=== PATIENT | female | born 1965 | race African-American/Black ===

== ENCOUNTER 2017-01-24 12:23 | Inpatient (IN) | payer OTHER ==
[2017-01-24 13:34] VITALS: BMI 18.0
[2017-01-24] MEDS ORDERED: IBUPROFEN 400 MG TABLET (FP) PO PRN (14:30)
[2017-01-24] MEDS ORDERED: ACETAMINOPHEN 325 MG TABLET (FP) PO PRN (14:30)
[2017-01-24] MEDS ORDERED: NICOTINE POLACRILEX 4 MG GUM BUC PRN (14:30)
[2017-01-24] MEDS ORDERED: MAG HYDROX/AL HYDROX/SIMETH 30 ML UNIT-DOSE CUP PO PRN (14:30)
[2017-01-24] MEDS ORDERED: LOPERAMIDE HCL 2 MG CAPSULE PO PRN (14:30)
[2017-01-24] MEDS ORDERED: guaiFENesin/D-METHORPHAN HB 10 ML UNIT-DOSE CUPS PO PRN (14:30)
[2017-01-24] MEDS ORDERED: MENTHOL/PHENOL 1 EACH UD MM PRN (14:30)
[2017-01-24] MEDS ORDERED: MAGNESIUM HYDROX 2400MG/30ML ORAL SUSPENSION 30 ML CUP PO PRN (14:30)
[2017-01-24] MEDS ORDERED: diphenhydrAMINE HCL 50 MG CAPSULE PO PRN (14:30)
[2017-01-24] MEDS ORDERED: chlordiazePOXIDE HCL 25 MG CAPSULE PO PRN ×2 (14:30→14:57)
[2017-01-24] MEDS ORDERED: chlordiazePOXIDE HCL 25 MG CAPSULE PO ONE ×2 (14:30→15:09)
[2017-01-24] MEDS ORDERED: MAGNESIUM CITRATE 300 ML BOTTLE PO PRN (14:30)
[2017-01-24] MEDS ORDERED: hydrOXYzine PAMOATE 50 MG CAPSULE (FP) PO PRN (14:30)
[2017-01-24] MEDS ORDERED: P-EPHED 60MG/TRIPROLIDI 2.5MG TABLET PO PRN (14:30)
--- NOTE | 2017-01-24 14:30 | HP ---
CIWA Score - CIWA Score Nausea/Vomitin-No Nausea/No Vomiting Muscle Tremors: 4-Moderate,w/Arms Extend Anxiety: 4-Mod. Anxious/Guarded Agitation: 4-Moderately Restless Paroxysmal Sweats: 3 Orientation: 0-Oriented Tacttile Disturbances: 0-None Auditory Disturbances: 0-None Visual Disturbances: 0-None Headache: 0-None Present CIWA-Ar Total Score: 15 Admission ROS [facility] - HPI Chief Complaint: I NEED TO STOP DRINKING. Allergies/Adverse Reactions: Allergies Allergy/AdvReac Type Severity Reaction Status Date / Time penicillin G Allergy Severe Swelling Verified 01/24/17 14:08 History of Present Illness: pt is 51yr female with a history of alcohol dependence seeking detox for treatment. Exam Limitations: No Limitations - Ebola screening Have you traveled outside of the country in the last 21 days: No Have you had contact with anyone from an Ebola affected area: No Have you been sick,other than usual withdrawal symptoms: No Do you have a fever: No - Review of Systems Constitutional: Diaphoresis, Loss of Appetite, Night Sweats, Changes in sleep EENT: reports: Blurred Vision, Nose Congestion Respiratory: reports: No Symptoms reported Cardiac: reports: No Symptoms Reported GI: reports: Poor Appetite, Poor Fluid Intake : reports: No Symptoms Reported Musculoskeletal: reports: No Symptoms Reported Integumentary: reports: Flushing, Sweating Neuro: reports: Tingling, Tremors Endocrine: reports: Excessive Sweating, Flushing, Intolerance to Cold, Intolerance to Heat Hematology: reports: No Symptoms Reported Psychiatric: reports: Judgement Intact, Mood/Affect Appropiate, Orientated x3, Agitated, Anxious Other Systems: Reviewed and Negative Patient History - Patient Medical History Hx Anemia: No Hx Asthma: No Hx Chronic Obstructive Pulmonary Disease (COPD): No Hx Cancer: No Hx Cardiac Disorders: No Hx Congestive Heart Failure: No Hx Hypertension: No Hx Hypercholesterolemia: No Hx Pacemaker: No HX Cerebrovascular Accident: No Hx Seizures: No Hx Dementia: No Hx Diabetes: No Hx Gastrointestinal Disorders: No Hx Liver Disease: No Hx Genitourinary Disorders: No Hx Sexually Transmitted Disorders: No Hx Renal Disease (ESRD): No Hx Thyroid Disease: No Hx Human Immunodeficiency Virus (HIV): Yes (on truvada but did not bring tivicay. diagnosed 2007) Hx Hepatitis C: Yes Hx Depression: Yes Hx Suicide Attempt: No (denies) Hx Bipolar Disorder: Yes Hx Schizophrenia: Yes - Patient Surgical History Past Surgical History: No - PPD History Previous Implant?: Yes Documented Results: Negative w/o proof PPD to be Administered?: Yes - Reproductive History Patient is a Female of Child Bearing Age (11 -55 yrs old): No Patient : Yes - Smoking Cessation Smoking history: Current every day smoker Have you smoked in the past 12 months: Yes Aproximately how many cigarettes per day: 10 Hx Chewing Tobacco Use: No Initiated information on smoking cessation: Yes 'Breaking Loose' booklet given: 01/24/17 - Substance & Tx. History Hx Alcohol Use: Yes Hx Substance Use: Yes Substance Use Type: Alcohol, Cocaine Hx Substance Use Treatment: Yes - Substances Abused Crack Route: Smoking Frequency: Daily Amount used: $150 Age of first use: 26 Date of Last Use: 01/24/17 Alcohol-beer Route: Oral Frequency: Daily Amount used: 3 (24 oz.) Age of first use: 23 Date of Last Use: 01/24/17 Family Disease History - Family Disease History Family Disease History: CA: Mother () Admission Physical Exam S - Vital Signs Vital Signs: Vital Signs - 24 hr 01/24/17 13:32 Temperature 97.6 F Pulse Rate 86 Respiratory 18 Rate Blood Pressure 100/72 - Physical General Appearance: Yes: Appropriately Dressed, Moderate Distress, Thin, Tremorous, Irritable, Sweating, Anxious HEENTM: Yes: Normal Voice, Nasal Congestion, Other (missing teeth) Respiratory: Yes: Lungs Clear, Normal Breath Sounds, No Respiratory Distress Neck: Yes: No masses,lesions,Nodules Breast: Yes: Within Normal Limits Cardiology: Yes: Regular Rhythm, Regular Rate, S1, S2 Abdominal: Yes: Normal Bowel Sounds Genitourinary: Yes: Within Normal Limits Back: Yes: Normal Inspection Musculoskeletal: Yes: full range of Motion Extremities: Yes: Normal Capillary Refill, Normal Inspection, Tremors Neurological: Yes: Fully Oriented, Alert, Normal Response Integumentary: Yes: Dry, Diaphoresis Lymphatic: Yes: Within Normal Limits - Diagnostic (1) Alcohol dependence with uncomplicated withdrawal Current Visit: Yes Status: Chronic (2) Cocaine dependence, uncomplicated Current Visit: Yes Status: Chronic (3) HIV disease Current Visit: Yes Status: Chronic (4) Nicotine dependence Current Visit: Yes Status: Chronic Qualifiers: Nicotine product type: cigarettes Substance use status: uncomplicated Qualified Code(s): F17.210 - Nicotine dependence, cigarettes, uncomplicated Cleared for Admission [facility] - Detox or Rehab [facility] Level of Care: Medically Managed Detox Regimen/Protocol: Librium [facility] Breath Alcohol Content Breath Alcohol Content: 0 Urine Pregancy Test - Result Urine Test Results: Negative- NO Line Present Urine Drug Screen - Results Urine Drug Screen Results: QUINTON-Cocaine
[2017-01-24] MEDS ORDERED: ALBUTEROL SO4 6.7 GM HFA INHALER IH PRN (14:51)
--- NOTE | 2017-01-24 15:57 | CONSULT ---
[facility] Psychiatric Consult - Data Date of interview: 01/24/17 Admission source: [facility] Identifying data: This is 89 years old female with history of Schizophrenia intoxicated with: Alcohol Crack and Nicotine Substance Abuse History: - Smoking Cessation. Smoking history: Current every day smoker. Have you smoked in the past 12 months: Yes. Aproximately how many cigarettes per day: 10. Hx Chewing Tobacco Use: No. Initiated information on smoking cessation: Yes. 'Breaking Loose' booklet given: 01/24/17. - Substance & Tx. History. Hx Alcohol Use: Yes. Hx Substance Use: Yes. Substance Use Type : Alcohol, Cocaine. Hx Substance Use Treatment: Yes. - Substances Abused. Crack. Route: Smoking. Frequency: Daily. Amount used: $150. Age of first use : 26. Date of Last Use: 01/24/17. Alcohol-beer. Route: Oral. Frequency: Daily. Amount used: 3 (24 oz.). Age of first use: 23. Date of Last Use: 01/24 Medical History: HIV Psychiatric History: Patient reportsm to carry Paranoid Schizophrenia with no history of psychiatric hospitalizations, intoxicated with: Alcohol, [place]zak and Nicotine. Patient reportsd taking prior mto admission: Reiperdal 1mg po bid. Cogentyin 0.5mg po bid. Trazodone 50mg po qhs Physical/Sexual Abuse/Trauma History: Denies Additional Comment: Reiperdal 1mg po bid. Cogentyin 0.5mg po bid. Trazodone 50mg po qhs Mental Status Exam - Mental Status Exam Alert and Oriented to: Place Cognitive Function: Fair Patient Appearance: Unkempt Mood: Anxious Affect: Labile Patient Behavior: Talkative Speech Pattern: Appropriate Voice Loudness: Mildly Loud Thought Process: Goal Oriented Thought Disorder: Being Controlled Hallucinations: Denies Suicidal Ideation: Denies Homicidal Ideation: Denies Insight/Judgement: Fair Sleep: Difficulty falling asleep Appetite: Weight loss Muscle strength/Tone: Normal Gait/Station: Normal Additional Comments: Reiperdal 1mg po bid. Cogentyin 0.5mg po bid. Trazodone 50mg po qhs Psychiatric Findings - Problem List ([place] 1, 2,3) (1) Alcohol dependence with uncomplicated withdrawal Current Visit: Yes Status: Chronic (2) Cocaine dependence, uncomplicated Current Visit: Yes Status: Chronic (3) Nicotine dependence Current Visit: Yes Status: Chronic Qualifiers: Nicotine product type: cigarettes Substance use status: uncomplicated Qualified Code(s): F17.210 - Nicotine dependence, cigarettes, uncomplicated (4) Paranoid schizophrenia Current Visit: Yes Status: Acute - Initial Treatment Plan Initial Treatment Plan: Reiperdal 1mg po bid. Cogentyin 0.5mg po bid. Trazodone 50mg po qhs
[2017-01-24] MEDS ORDERED: chlordiazePOXIDE HCL 25 MG CAPSULE PO SCH (17:00)
[2017-01-24] MEDS: chlordiazePOXIDE HCL 25 MG CAPSULE PO SCH ×2 (17:42→22:46)
[2017-01-24 20:15] LABS: URINE APPEARANCE SLCLOUDY; URINE BILIRUBIN NEGATIVE (NEGATIVE); URINE BLOOD NEGATIVE (NEGATIVE); URINE COLOR YELLOW; URINE GLUCOSE (UA) NEGATIVE (NEGATIVE); URINE KETONE NEGATIVE (NEGATIVE); URINE LEUK ESTERASE NEGATIVE (NEGATIVE); URINE NITRITE NEGATIVE (NEGATIVE); URINE PROTEIN NEGATIVE (NEGATIVE); URINE UROBILINOGEN 4.0 E.U/dl E.U./dl (0.2-1.0)
[2017-01-24] MEDS ORDERED: [UNRECOGNIZED DRUG - OTHER] PO SCH (22:00)
[2017-01-24] MEDS ORDERED: CALCIUM CARBONATE PO SCH (22:00)
[2017-01-24] MEDS ORDERED: VITAMIN D3 PO SCH (22:00)
[2017-01-24] MEDS: THIAMINE HCL 100 MG TABLET (FP) PO SCH (22:46)
[2017-01-24] MEDS: risperiDONE 1 MG TABLET (FP) PO SCH (22:46)
[2017-01-24] MEDS: traZODone HCL 50 MG TABLET (FP) PO SCH (22:46)
[2017-01-24] MEDS: BENZTROPINE MESYLATE 1 MG TABLET (FP) PO SCH (22:46)
[2017-01-25] MEDS: chlordiazePOXIDE HCL 25 MG CAPSULE PO SCH ×2 (05:26→10:58)
[2017-01-25 10:14] LABS: MEAN CELL VOLUME 80.5 fl (80-96); MEAN PLT VOLUME 10.3 fl (7.5-11.1); PLATELET COUNT 123 K/MM3 (134-434); RDW 16.4 % (11.6-15.6); WHITE BLOOD COUNT 2.5 K/mm3 (4.0-10.0)
[2017-01-25 10:56] LABS: ALBUMIN 3.2 g/dl (3.4-5.0); BILIRUBIN,TOTAL 0.4 mg/dL (0.2-1.0); CALCIUM 8.9 mg/dL (8.5-10.1); TOT PROT 7.6 g/dl (6.4-8.2)
[2017-01-25] MEDS: PRENATAL VITAMINS W/ FOLIC ACID TABLET (FP) PO SCH (10:57)
[2017-01-25] MEDS: risperiDONE 1 MG TABLET (FP) PO SCH ×2 (10:58→22:38)
[2017-01-25] MEDS: BENZTROPINE MESYLATE 1 MG TABLET (FP) PO SCH ×2 (10:58→22:37)
[2017-01-25] MEDS: CALCIUM 500MG/VIT-D 200 UNITS COMBO TABLET (FP) PO SCH (10:58)
[2017-01-25] MEDS: NICOTINE 21 MG/24 HOURS TOPICAL PATCH TD SCH (11:00)
--- NOTE | 2017-01-25 11:55 | PN ---
[facility] CIWA - CIWA Score Nausea/Vomitin Muscle Tremors: 2 Anxiety: 2 Agitation: 2 Paroxysmal Sweats: 3 Orientation: 0-Oriented Tacttile Disturbances: 1-Very Mild Itch/Numbness Auditory Disturbances: 0-None Visual Disturbances: 0-None Headache: 0-None Present CIWA-Ar Total Score: 12 S Progress Note (SOAP) Subjective: interrrupted sleep, sweats , diarrhea Objective: 01/25/17 11:58 01/25/17 11:58 Vital Signs Temperature 97.7 F 01/25/17 11:30 Pulse Rate 80 01/25/17 11:30 Respiratory Rate 18 01/25/17 11:30 Blood Pressure 87/52 01/25/17 11:30 O2 Sat by Pulse Oximetry (%) Laboratory Tests 01/24/17 01/25/17 01/25/17 19:00 07:00 07:00 WBC 2.5 L RBC 4.57 Hgb 11.4 Hct 36.8 MCV 80.5 MCHC 31.0 L RDW 16.4 H Plt Count 123 L MPV 10.3 Sodium 142 Potassium 3.8 Chloride 106 Carbon Dioxide 31 Anion Gap 5 L BUN 14 Creatinine 1.0 Creat Clearance w eGFR 58.00 Random Glucose 71 L Calcium 8.9 Total Bilirubin 0.4 AST 70 H ALT 86 H Alkaline Phosphatase 100 Total Protein 7.6 Albumin 3.2 L Urine Color Yellow Urine Appearance Slcloudy Urine pH 5.0 Ur Specific [place] 1.024 Urine Protein Negative Urine Glucose (UA) Negative Urine Ketones Negative Urine Blood Negative Urine Nitrite Negative Urine Bilirubin Negative Urine Urobilinogen 4.0 e.u/dl H Ur Leukocyte Esterase Negative pt aox3 in nad ambulating 01/25/17 12:01 Assessment: 01/25/17 11:59 withdrawal sx's htn Plan: cont. detox increase fluids imodium prn clonidine 0.1mg now increase enalapril to 10mg /d
--- NOTE | 2017-01-25 16:55 | EKG ---
Test Reason : Blood Pressure : / mmHG Vent. Rate : 068 BPM Atrial Rate : 068 BPM P-R Int : 142 ms QRS Dur : 082 ms QT Int : 404 ms P-R-T Axes : 000 106 110 degrees QTc Int : 429 ms NORMAL SINUS RHYTHM RIGHTWARD AXIS BORDERLINE ECG NO PREVIOUS ECGS AVAILABLE Confirmed by GEMMA GRANADOS MD ([id number]) on 01/25/2017 4:55:14 PM Referred By: Confirmed By:GEMMA GRANADOS MD
[2017-01-25] MEDS: chlordiazePOXIDE HCL 10 MG CAPSULE PO SCH ×2 (16:56→22:37)
[2017-01-25] MEDS ORDERED: chlordiazePOXIDE HCL 25 MG CAPSULE PO SCH (17:00)
[2017-01-25] MEDS: traZODone HCL 50 MG TABLET (FP) PO SCH (22:38)
[2017-01-25] MEDS: THIAMINE HCL 100 MG TABLET (FP) PO SCH (22:38)
[2017-01-26] MEDS: chlordiazePOXIDE HCL 10 MG CAPSULE PO SCH ×2 (07:00→10:26)
[2017-01-26] MEDS: CALCIUM 500MG/VIT-D 200 UNITS COMBO TABLET (FP) PO SCH (10:24)
[2017-01-26] MEDS: NICOTINE 21 MG/24 HOURS TOPICAL PATCH TD SCH (10:24)
[2017-01-26] MEDS: risperiDONE 1 MG TABLET (FP) PO SCH ×2 (10:24→22:27)
[2017-01-26] MEDS: PRENATAL VITAMINS W/ FOLIC ACID TABLET (FP) PO SCH (10:24)
[2017-01-26] MEDS: BENZTROPINE MESYLATE 1 MG TABLET (FP) PO SCH ×2 (10:24→22:27)
--- NOTE | 2017-01-26 10:33 | PN ---
[facility] CIWA - CIWA Score Nausea/Vomitin-No Nausea/No Vomiting Muscle Tremors: 3 Anxiety: 3 Agitation: 2 Paroxysmal Sweats: 2 Orientation: 0-Oriented Tacttile Disturbances: 0-None Auditory Disturbances: 0-None Visual Disturbances: 0-None Headache: 0-None Present CIWA-Ar Total Score: 10 S Progress Note (SOAP) Subjective: sweats agitation feeling much better Objective: 01/26/17 10:32 Vital Signs Temperature 97.1 F L 01/26/17 10:00 Pulse Rate 115 H 01/26/17 10:00 Respiratory Rate 20 01/26/17 10:00 Blood Pressure 108/63 01/26/17 10:00 O2 Sat by Pulse Oximetry (%) Laboratory Tests 01/24/17 01/25/17 01/25/17 19:00 07:00 07:00 WBC 2.5 L RBC 4.57 Hgb 11.4 Hct 36.8 MCV 80.5 MCHC 31.0 L RDW 16.4 H Plt Count 123 L MPV 10.3 Sodium 142 Potassium 3.8 Chloride 106 Carbon Dioxide 31 Anion Gap 5 L BUN 14 Creatinine 1.0 Creat Clearance w eGFR 58.00 Random Glucose 71 L Calcium 8.9 Total Bilirubin 0.4 AST 70 H ALT 86 H Alkaline Phosphatase 100 Total Protein 7.6 Albumin 3.2 L Urine Color Yellow Urine Appearance Slcloudy Urine pH 5.0 Ur Specific [place] 1.024 Urine Protein Negative Urine Glucose (UA) Negative Urine Ketones Negative Urine Blood Negative Urine Nitrite Negative Urine Bilirubin Negative Urine Urobilinogen 4.0 e.u/dl H Ur Leukocyte Esterase Negative RPR Titer 01/25/17 07:00 WBC RBC Hgb Hct MCV MCHC RDW Plt Count MPV Sodium Potassium Chloride Carbon Dioxide Anion Gap BUN Creatinine Creat Clearance w eGFR Random Glucose Calcium Total Bilirubin AST ALT Alkaline Phosphatase Total Protein Albumin Urine Color Urine Appearance Urine pH Ur Specific [place] Urine Protein Urine Glucose (UA) Urine Ketones Urine Blood Urine Nitrite Urine Bilirubin Urine Urobilinogen Ur Leukocyte Esterase RPR Titer Nonreactive awake/alert ambulating no acute distress Assessment: 01/26/17 10:32 withdrawal sx Plan: continue detox increase fluids
[2017-01-26] MEDS ORDERED: chlordiazePOXIDE 5 MG CAPSULE PO SCH (17:00)
[2017-01-26] MEDS: chlordiazePOXIDE 5 MG CAPSULE PO SCH ×2 (17:44→22:27)
[2017-01-26] MEDS: traZODone HCL 50 MG TABLET (FP) PO SCH (22:27)
[2017-01-26] MEDS: THIAMINE HCL 100 MG TABLET (FP) PO SCH (22:41)
[2017-01-27] MEDS: chlordiazePOXIDE 5 MG CAPSULE PO SCH ×2 (05:44→10:53)
[2017-01-27] MEDS: BENZTROPINE MESYLATE 1 MG TABLET (FP) PO SCH ×2 (10:51→22:40)
[2017-01-27] MEDS: CALCIUM 500MG/VIT-D 200 UNITS COMBO TABLET (FP) PO SCH (10:51)
[2017-01-27] MEDS: PRENATAL VITAMINS W/ FOLIC ACID TABLET (FP) PO SCH (10:51)
[2017-01-27] MEDS: risperiDONE 1 MG TABLET (FP) PO SCH ×2 (10:51→22:40)
[2017-01-27] MEDS: NICOTINE 21 MG/24 HOURS TOPICAL PATCH TD SCH ×2 (10:53→15:06)
--- NOTE | 2017-01-27 11:57 | PN ---
[facility] Progress Note (SOAP) Subjective: feeling better but has diarrhea Objective: 01/27/17 11:56 Vital Signs Temperature 97.5 F L 01/27/17 09:45 Pulse Rate 86 01/27/17 09:45 Respiratory Rate 18 01/27/17 09:45 Blood Pressure 126/99 01/27/17 11:27 O2 Sat by Pulse Oximetry (%) Laboratory Tests 01/24/17 01/25/17 01/25/17 19:00 07:00 07:00 WBC 2.5 L RBC 4.57 Hgb 11.4 Hct 36.8 MCV 80.5 MCHC 31.0 L RDW 16.4 H Plt Count 123 L MPV 10.3 Sodium 142 Potassium 3.8 Chloride 106 Carbon Dioxide 31 Anion Gap 5 L BUN 14 Creatinine 1.0 Creat Clearance w eGFR 58.00 Random Glucose 71 L Calcium 8.9 Total Bilirubin 0.4 AST 70 H ALT 86 H Alkaline Phosphatase 100 Total Protein 7.6 Albumin 3.2 L Urine Color Yellow Urine Appearance Slcloudy Urine pH 5.0 Ur Specific [place] 1.024 Urine Protein Negative Urine Glucose (UA) Negative Urine Ketones Negative Urine Blood Negative Urine Nitrite Negative Urine Bilirubin Negative Urine Urobilinogen 4.0 e.u/dl H Ur Leukocyte Esterase Negative RPR Titer 01/25/17 07:00 WBC RBC Hgb Hct MCV MCHC RDW Plt Count MPV Sodium Potassium Chloride Carbon Dioxide Anion Gap BUN Creatinine Creat Clearance w eGFR Random Glucose Calcium Total Bilirubin AST ALT Alkaline Phosphatase Total Protein Albumin Urine Color Urine Appearance Urine pH Ur Specific [place] Urine Protein Urine Glucose (UA) Urine Ketones Urine Blood Urine Nitrite Urine Bilirubin Urine Urobilinogen Ur Leukocyte Esterase RPR Titer Nonreactive pt aox3 in nad ambulating Assessment: 01/27/17 11:56 withdrawal sx;s diarrhea Plan: cont. detox increase fluids imodium prn d/c in am
[2017-01-27] MEDS ORDERED: chlordiazePOXIDE HCL 10 MG CAPSULE PO SCH (17:00)
[2017-01-27] MEDS: chlordiazePOXIDE HCL 10 MG CAPSULE PO SCH ×2 (17:46→22:40)
[2017-01-27] MEDS: traZODone HCL 50 MG TABLET (FP) PO SCH (22:40)
[2017-01-27] MEDS: THIAMINE HCL 100 MG TABLET (FP) PO SCH (22:40)
[2017-01-28] MEDS: chlordiazePOXIDE HCL 10 MG CAPSULE PO SCH (06:02)
[2017-01-28] MEDS: CALCIUM 500MG/VIT-D 200 UNITS COMBO TABLET (FP) PO SCH (09:40)
[2017-01-28] MEDS: PRENATAL VITAMINS W/ FOLIC ACID TABLET (FP) PO SCH (09:40)
--- NOTE | 2017-01-28 09:40 | PN ---
S Progress Note (SOAP) Subjective: ALERT,NO COMPLAINT Objective: 01/28/17 09:38 Vital Signs Temperature 98.6 F 01/28/17 07:01 Pulse Rate 66 01/28/17 07:01 Respiratory Rate 16 01/28/17 07:01 Blood Pressure 100/60 01/28/17 07:01 O2 Sat by Pulse Oximetry (%) Assessment: 01/28/17 09:38 DETOX COMPLETED,NO WITHDRAWAL SYMPTOM Plan: DISCHARGE TODAY,FOLLOW UP WITH AFTER CARE [facility]
--- NOTE | 2017-01-28 09:40 | DS ---
[facility] Detox Discharge Summary Admission Date: 01/24/17 Discharge Date: 01/28/17 - History Present History: Alcohol Dependence, Cocaine Dependence Additional Comments: FOLLOW UP WITH [facility] AND PMD FOR MEDICAL PROBLEM Pertinent Past History: HIV ASTHMA NICOTINE DEPENDENCE - Physical Exam Results Vital Signs: Vital Signs Temperature 98.6 F 01/28/17 07:01 Pulse Rate 66 01/28/17 07:01 Respiratory Rate 16 01/28/17 07:01 Blood Pressure 100/60 01/28/17 07:01 O2 Sat by Pulse Oximetry (%) Pertinent Admission Physical Exam Findings: WITHDRAWAL SYMPTOM - Treatment Hospital Course: Detox Protocol Followed, Detoxed Safely, Responded well, Discharged Condition Good, Rehab Referral Accepted Patient has Accepted a Rehab Referral to: [facility] - Medication Discharge Medications: Ambulatory Orders Albuterol Sulfate Inhaler - [Ventolin Hfa Inhaler -] 2 inh PO Q4H PRN 01/24/17 Benztropine Mesylate [Cogentin -] 0.5 mg PO BID 01/24/17 Benztropine Mesylate [Cogentin -] 0.5 mg PO BID #60 tablet 01/24/17 Bisacodyl [Dulcolax -] 5 mg PO DAILY PRN 01/24/17 Calcium Carbonate/Vitamin D3 [Oyster Shell Calcium-Vit D Tab] 1 each PO BID Emtricitabine/Tenofovir [Truvada] 1 tab PO DAILY 01/24/17 Risperidone [Risperdal -] 1 mg PO BID #60 tablet 01/24/17 Risperidone [Risperdal] 1 mg PO BID 01/24/17 Trazodone HCl [Desyrel -] 50 mg PO HS #30 tablet 01/24/17 Trazodone HCl [Desyrel -] 50 mg PO HS PRN 01/24/17 - Diagnosis (1) Paranoid schizophrenia Current Visit: Yes Status: Acute (2) Alcohol dependence with uncomplicated withdrawal Current Visit: Yes Status: Chronic (3) Cocaine dependence, uncomplicated Current Visit: Yes Status: Chronic (4) HIV disease Current Visit: Yes Status: Chronic (5) Nicotine dependence Current Visit: Yes Status: Chronic Qualifiers: Nicotine product type: cigarettes Substance use status: uncomplicated Qualified Code(s): F17.210 - Nicotine dependence, cigarettes, uncomplicated (6) Asthma Current Visit: Yes Status: Acute - AMA Did Patient Leave Against Medical Advice: No
[2017-01-28] MEDS: BENZTROPINE MESYLATE 1 MG TABLET (FP) PO SCH (09:41)
[2017-01-28] MEDS: risperiDONE 1 MG TABLET (FP) PO SCH (09:41)
[2017-01-28] MEDS: NICOTINE 21 MG/24 HOURS TOPICAL PATCH TD SCH (09:41)
[2017-01-28 10:35] VITALS: BP 89/60; PULSE 88; TEMP 98.1
== END 2017-01-28 12:25 | disposition other institution (70) | DRG 774 ==
LOC: YASAS 12:23 → Y6N 15:00
PROVIDERS: ADMIT Internal Medicine Addiction Medicine; ATTEND Internal Medicine Addiction Medicine
PROC: HZ2ZZZZ Detoxification Services for Substance Abuse Treatment (ICD-10-PCS; principal; 2017-01-28)
DX: F10.230 Alcohol dependence with withdrawal, uncomplicated (principal); F14.20 Cocaine dependence, uncomplicated; F17.210 Nicotine dependence, cigarettes, uncomplicated; F20.0 Paranoid schizophrenia; B20 Human immunodeficiency virus [HIV] disease; J45.909 Unspecified asthma, uncomplicated
CPT/HCPCS: 36415; 71020-TC; 80053; 81003; 85027; 86593; 93005; 93010; J2794

== ENCOUNTER 2017-01-28 12:46 | Inpatient (IN) | payer OTHER ==
--- NOTE | 2017-01-28 15:11 | HP ---
Psychiatrist Admission - Data Date of interview: 01/28/17 Admission source: [address] [place] [address] Identifying data: This is the first admission to [address] [place] [address] rehabilitation for this 51 years old AA mother of 36 yo daughter, resides alone,supported by [facility]. Medical History: HIV+,Hep C. Psychiatric History: Patient was dx with Schizophrenia in 2008 after she was admitted to [facility] after her first nervious breakdown.She was started on Trazodone and Risperdal.She reports no more psychiatric hospitalizations.She is under care of psychiatrist at [facility] in the [place]. Current medications:Risperidone 2 mg po bid with Cogentin 0,5 mg po bid and Trazodone 50 mg po hs. 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) - Admission Criteria Previous failed treatment: Yes Poor recovery environment: Yes Comorbidities: Yes Lacks judgement: Yes Mental Status Exam - Mental Status Exam Alert and Oriented to: Time, Place, Person Cognitive Function: Grossly Intact Patient Appearance: Unkempt Mood: Sad Affect: Appropriate, Mood Congruent Patient Behavior: Cooperative Speech Pattern: Clear Voice Loudness: Normal Thought Process: Goal Oriented Thought Disorder: Being Controlled Hallucinations: Denies Suicidal Ideation: Denies Homicidal Ideation: Denies Insight/Judgement: Fair Sleep: Fair Appetite: Fair, Weight loss Muscle strength/Tone: Normal Gait/Station: Normal Psychiatric Findings - Problem List ([employer] 1, 2,3) (1) Asthma Current Visit: Yes Status: Chronic (2) Paranoid schizophrenia Current Visit: Yes Status: Chronic (3) Alcohol dependence with uncomplicated withdrawal Current Visit: Yes Status: Chronic (4) Cocaine dependence, uncomplicated Current Visit: Yes Status: Chronic (5) HIV disease Current Visit: Yes Status: Chronic (6) Nicotine dependence Current Visit: Yes Status: Chronic Qualifiers: Nicotine product type: cigarettes Substance use status: uncomplicated Qualified Code(s): F17.210 - Nicotine dependence, cigarettes, uncomplicated - Initial Treatment Plan Initial Treatment Plan: Continue current medications as per plan. Will monitor proigress.
[2017-01-28] MEDS ORDERED: LOPERAMIDE HCL 2 MG CAPSULE PO PRN (15:32)
[2017-01-28] MEDS ORDERED: MENTHOL/PHENOL 1 EACH UD MM PRN (15:32)
[2017-01-28] MEDS ORDERED: IBUPROFEN 400 MG TABLET (FP) PO PRN (15:32)
[2017-01-28] MEDS ORDERED: diphenhydrAMINE HCL 50 MG CAPSULE PO PRN (15:32)
[2017-01-28] MEDS ORDERED: guaiFENesin/D-METHORPHAN HB 10 ML UNIT-DOSE CUPS PO PRN (15:32)
[2017-01-28] MEDS ORDERED: MAGNESIUM HYDROX 2400MG/30ML ORAL SUSPENSION 30 ML CUP PO PRN (15:32)
[2017-01-28] MEDS ORDERED: MAG HYDROX/AL HYDROX/SIMETH 30 ML UNIT-DOSE CUP PO PRN (15:32)
[2017-01-28] MEDS ORDERED: ACETAMINOPHEN 325 MG TABLET (FP) PO PRN (15:32)
[2017-01-28] MEDS ORDERED: MAGNESIUM CITRATE 300 ML BOTTLE PO PRN (15:32)
[2017-01-28] MEDS ORDERED: P-EPHED 60MG/TRIPROLIDI 2.5MG TABLET PO PRN (15:32)
[2017-01-28] MEDS ORDERED: BISACODYL 5 MG TABLET.DR (FP) PO PRN (15:36)
[2017-01-28] MEDS ORDERED: ALBUTEROL SO4 6.7 GM HFA INHALER IH PRN (15:37)
--- NOTE | 2017-01-28 15:38 | HP ---
[facility] Rehab Assess/Revision - Admission History Admitted to Rehab from: [facility] Date of Admission to Rehab: 01/28/17 - Vital signs Vital Signs: Vital Signs 01/28/17 15:39 Temperature 95.9 F L Pulse Rate 87 Respiratory 18 Rate Blood Pressure 95/63 - Findings Detox History & Physical reviewed: Yes Concur with findings: Yes
[2017-01-28] MEDS: THIAMINE HCL 100 MG TABLET (FP) PO SCH (21:20)
[2017-01-28] MEDS: risperiDONE 1 MG TABLET (FP) PO SCH (21:20)
[2017-01-28] MEDS: traZODone HCL 50 MG TABLET (FP) PO SCH (21:20)
[2017-01-28] MEDS: RALTEGRAVIR POTASSIUM 400 MG TAB PO SCH (21:20)
[2017-01-28] MEDS: BENZTROPINE MESYLATE 1 MG TABLET (FP) PO SCH (21:21)
[2017-01-28] MEDS ORDERED: PT OWN MED DRAWER 7, Y5N ONE (22:56)
[2017-01-29] MEDS: NICOTINE 21 MG/24 HOURS TOPICAL PATCH TD SCH (09:53)
[2017-01-29] MEDS: PRENATAL VITAMINS W/ FOLIC ACID TABLET (FP) PO SCH (09:53)
[2017-01-29] MEDS: risperiDONE 1 MG TABLET (FP) PO SCH ×2 (09:54→21:44)
[2017-01-29] MEDS: RALTEGRAVIR POTASSIUM 400 MG TAB PO SCH ×2 (09:54→21:43)
[2017-01-29] MEDS: BENZTROPINE MESYLATE 1 MG TABLET (FP) PO SCH ×2 (09:55→21:44)
[2017-01-29] MEDS: EMTRICITABINE 200MG/TENOFOVIR 300MG PO SCH (09:57)
[2017-01-29] MEDS ORDERED: PT OWN MED DRAWER 7, Y5N ONE (21:14)
[2017-01-29] MEDS: THIAMINE HCL 100 MG TABLET (FP) PO SCH (21:44)
[2017-01-29] MEDS: traZODone HCL 50 MG TABLET (FP) PO SCH (21:44)
[2017-01-30] MEDS ORDERED: PT OWN MED DRAWER 7, Y5N ONE ×3 (08:14→20:06)
[2017-01-30] MEDS: BENZTROPINE MESYLATE 1 MG TABLET (FP) PO SCH ×2 (10:01→21:03)
[2017-01-30] MEDS: NICOTINE 21 MG/24 HOURS TOPICAL PATCH TD SCH (10:02)
[2017-01-30] MEDS: RALTEGRAVIR POTASSIUM 400 MG TAB PO SCH ×2 (10:02→21:02)
[2017-01-30] MEDS: risperiDONE 1 MG TABLET (FP) PO SCH ×2 (10:03→21:03)
[2017-01-30] MEDS: PRENATAL VITAMINS W/ FOLIC ACID TABLET (FP) PO SCH (10:03)
[2017-01-30] MEDS: EMTRICITABINE 200MG/TENOFOVIR 300MG PO SCH (10:04)
[2017-01-30] MEDS ORDERED: PNEUMOC 13-VAL CONJ-DIP CRM/PF 0.5 ML DISP.SYRIN IM ONE (12:00)
[2017-01-30] MEDS ORDERED: INFLUENZA VACCINE 45 MCG/0.5 ML (MDV 16-17) IM ONE (12:00)
[2017-01-30] MEDS: traZODone HCL 50 MG TABLET (FP) PO SCH (21:02)
[2017-01-30] MEDS: THIAMINE HCL 100 MG TABLET (FP) PO SCH (21:03)
[2017-01-31] MEDS: PRENATAL VITAMINS W/ FOLIC ACID TABLET (FP) PO SCH (10:02)
[2017-01-31] MEDS: EMTRICITABINE 200MG/TENOFOVIR 300MG PO SCH (10:02)
[2017-01-31] MEDS: RALTEGRAVIR POTASSIUM 400 MG TAB PO SCH ×2 (10:03→21:20)
[2017-01-31] MEDS: NICOTINE 21 MG/24 HOURS TOPICAL PATCH TD SCH (10:03)
[2017-01-31] MEDS: risperiDONE 1 MG TABLET (FP) PO SCH ×2 (10:03→21:20)
[2017-01-31] MEDS: BENZTROPINE MESYLATE 1 MG TABLET (FP) PO SCH ×2 (10:03→21:21)
[2017-01-31] MEDS ORDERED: COLLOIDAL OATMEAL 1 BAR EACH TP PRN (14:20)
[2017-01-31] MEDS: THIAMINE HCL 100 MG TABLET (FP) PO SCH (21:20)
[2017-01-31] MEDS: traZODone HCL 50 MG TABLET (FP) PO SCH (21:20)
[2017-02-01] MEDS: risperiDONE 1 MG TABLET (FP) PO SCH ×2 (10:02→21:24)
[2017-02-01] MEDS: RALTEGRAVIR POTASSIUM 400 MG TAB PO SCH ×2 (10:02→21:24)
[2017-02-01] MEDS: EMTRICITABINE 200MG/TENOFOVIR 300MG PO SCH (10:02)
[2017-02-01] MEDS: NICOTINE 21 MG/24 HOURS TOPICAL PATCH TD SCH (10:02)
[2017-02-01] MEDS: PRENATAL VITAMINS W/ FOLIC ACID TABLET (FP) PO SCH (10:02)
[2017-02-01] MEDS: BENZTROPINE MESYLATE 1 MG TABLET (FP) PO SCH ×2 (10:02→21:26)
[2017-02-01] MEDS: THIAMINE HCL 100 MG TABLET (FP) PO SCH (21:24)
[2017-02-01] MEDS: traZODone HCL 50 MG TABLET (FP) PO SCH (21:24)
[2017-02-02] MEDS ORDERED: PT OWN MED DRAWER 7, Y5N ONE ×2 (08:47→10:03)
[2017-02-02] MEDS: PRENATAL VITAMINS W/ FOLIC ACID TABLET (FP) PO SCH (10:00)
[2017-02-02] MEDS: NICOTINE 21 MG/24 HOURS TOPICAL PATCH TD SCH (10:01)
[2017-02-02] MEDS: RALTEGRAVIR POTASSIUM 400 MG TAB PO SCH ×2 (10:01→21:20)
[2017-02-02] MEDS: BENZTROPINE MESYLATE 1 MG TABLET (FP) PO SCH ×2 (10:01→21:21)
[2017-02-02] MEDS: risperiDONE 1 MG TABLET (FP) PO SCH ×2 (10:01→21:20)
[2017-02-02] MEDS: EMTRICITABINE 200MG/TENOFOVIR 300MG PO SCH (10:03)
[2017-02-02] MEDS: NICOTINE POLACRILEX 2 MG GUM BUC PRN (15:13)
[2017-02-02] MEDS: traZODone HCL 50 MG TABLET (FP) PO SCH (21:20)
[2017-02-02] MEDS: THIAMINE HCL 100 MG TABLET (FP) PO SCH (21:20)
[2017-02-03] MEDS: PRENATAL VITAMINS W/ FOLIC ACID TABLET (FP) PO SCH (09:59)
[2017-02-03] MEDS: BISACODYL 5 MG TABLET.DR (FP) PO SCH (09:59)
[2017-02-03] MEDS: RALTEGRAVIR POTASSIUM 400 MG TAB PO SCH ×2 (09:59→21:19)
[2017-02-03] MEDS: risperiDONE 1 MG TABLET (FP) PO SCH ×2 (09:59→21:19)
[2017-02-03] MEDS: EMTRICITABINE 200MG/TENOFOVIR 300MG PO SCH (10:00)
[2017-02-03] MEDS: BENZTROPINE MESYLATE 1 MG TABLET (FP) PO SCH ×2 (10:00→21:20)
[2017-02-03] MEDS: NICOTINE 21 MG/24 HOURS TOPICAL PATCH TD SCH (10:01)
[2017-02-03] MEDS: NICOTINE POLACRILEX 2 MG GUM BUC PRN (10:02)
[2017-02-03] MEDS ORDERED: MAGNESIUM CITRATE 300 ML BOTTLE PO PRN (14:35)
[2017-02-03] MEDS: traZODone HCL 50 MG TABLET (FP) PO SCH (21:19)
[2017-02-03] MEDS: THIAMINE HCL 100 MG TABLET (FP) PO SCH (21:20)
[2017-02-04] MEDS ORDERED: PT OWN MED DRAWER 7, Y5N ONE ×2 (08:26→19:28)
[2017-02-04] MEDS: RALTEGRAVIR POTASSIUM 400 MG TAB PO SCH ×2 (10:09→23:06)
[2017-02-04] MEDS: EMTRICITABINE 200MG/TENOFOVIR 300MG PO SCH (10:09)
[2017-02-04] MEDS: PRENATAL VITAMINS W/ FOLIC ACID TABLET (FP) PO SCH (10:09)
[2017-02-04] MEDS: BENZTROPINE MESYLATE 1 MG TABLET (FP) PO SCH ×2 (10:09→23:06)
[2017-02-04] MEDS: BISACODYL 5 MG TABLET.DR (FP) PO SCH (10:09)
[2017-02-04] MEDS: risperiDONE 1 MG TABLET (FP) PO SCH ×2 (10:10→23:07)
[2017-02-04] MEDS: NICOTINE 21 MG/24 HOURS TOPICAL PATCH TD SCH (10:10)
[2017-02-04] MEDS: traZODone HCL 50 MG TABLET (FP) PO SCH (23:06)
[2017-02-04] MEDS: THIAMINE HCL 100 MG TABLET (FP) PO SCH (23:07)
[2017-02-05 07:09] VITALS: BP 91/63; PULSE 62; TEMP 97.9
[2017-02-05] MEDS ORDERED: PT OWN MED DRAWER 7, Y5N ONE (08:53)
[2017-02-05] MEDS: BISACODYL 5 MG TABLET.DR (FP) PO SCH (10:56)
[2017-02-05] MEDS: BENZTROPINE MESYLATE 1 MG TABLET (FP) PO SCH (10:56)
[2017-02-05] MEDS: risperiDONE 1 MG TABLET (FP) PO SCH (10:57)
[2017-02-05] MEDS: EMTRICITABINE 200MG/TENOFOVIR 300MG PO SCH (10:57)
[2017-02-05] MEDS: PRENATAL VITAMINS W/ FOLIC ACID TABLET (FP) PO SCH (10:57)
[2017-02-05] MEDS: NICOTINE 21 MG/24 HOURS TOPICAL PATCH TD SCH (10:57)
[2017-02-05] MEDS: RALTEGRAVIR POTASSIUM 400 MG TAB PO SCH (10:57)
--- NOTE | 2017-02-05 11:46 | PN ---
[facility] Progress Note Note: Psychiatry Attending's note : Came to [facility] to evaluate this patient. Reason : request for immediate discharge. Patient not found.As per staff,Patient refused to wait for evaluation. See staff's notes for details.
== END 2017-02-05 11:10 | disposition home or self-care (01) | DRG 772 ==
LOC: YASAS 12:46 → Y3E 12:47
PROVIDERS: ADMIT Psychiatry & Neurology Psychiatry; ATTEND Psychiatry & Neurology Psychiatry
PROC: HZ42ZZZ Group Counseling for Substance Abuse Treatment, Cognitive-Behavioral (ICD-10-PCS; principal; 2017-02-05)
DX: F10.230 Alcohol dependence with withdrawal, uncomplicated (principal); F14.20 Cocaine dependence, uncomplicated; F17.210 Nicotine dependence, cigarettes, uncomplicated; F20.0 Paranoid schizophrenia; B20 Human immunodeficiency virus [HIV] disease; B18.2 Chronic viral hepatitis C; J45.20 Mild intermittent asthma, uncomplicated
CPT/HCPCS: 90670; J2794

== ENCOUNTER 2022-05-13 13:27 | Inpatient (IN) | payer OTHER ==
[2022-05-13 14:52] VITALS: BMI 17.5
[2022-05-13] MEDS ORDERED: MAGNESIUM HYDROX 2400MG/30ML ORAL SUSPENSION 30 ML CUP PO PRN (15:07)
[2022-05-13] MEDS ORDERED: LOPERAMIDE HCL 2 MG CAPSULE PO PRN (15:07)
[2022-05-13] MEDS ORDERED: NICOTINE 10 MG CARTRIDGE (INHALER) IH PRN (15:07)
[2022-05-13] MEDS ORDERED: guaiFENesin 200 MG/10 ML 10 ML UNIT-DOSE CUPS PO PRN (15:07)
[2022-05-13] MEDS ORDERED: P-EPHED 60MG/TRIPROLIDI 2.5MG TABLET PO PRN (15:07)
[2022-05-13] MEDS ORDERED: MAG HYDROX/AL HYDROX/SIMETH 30 ML UNIT-DOSE CUP PO PRN (15:07)
[2022-05-13] MEDS ORDERED: ACETAMINOPHEN 325 MG TABLET (FP) PO PRN (15:07)
[2022-05-13] MEDS ORDERED: IBUPROFEN 400 MG TABLET (FP) PO PRN (15:07)
[2022-05-13] MEDS ORDERED: MAGNESIUM CITRATE 300 ML BOTTLE PO PRN (15:07)
[2022-05-13] MEDS ORDERED: ALBUTEROL SO4 HFA INHALER IH PRN (15:16)
[2022-05-13] MEDS: hydrOXYzine PAMOATE 25 MG CAPSULE (FP) PO SCH ×2 (20:32→21:21)
[2022-05-13] MEDS: NICOTINE 14 MG/24 HOURS TOPICAL PATCH TD SCH (20:32)
[2022-05-13] MEDS: PRENATAL VITAMINS W/ FOLIC ACID TABLET (FP) PO SCH (20:32)
[2022-05-13] MEDS ORDERED: TUBERCULIN PPD 5 TU/0.1ML VIAL ID ONE (20:39)
[2022-05-13] MEDS: THIAMINE HCL 100 MG TABLET (FP) PO SCH (21:20)
[2022-05-13] MEDS: MELATONIN 5 MG TABLETS PO SCH (21:21)
[2022-05-14] MEDS: hydrOXYzine PAMOATE 25 MG CAPSULE (FP) PO SCH ×5 (06:45→21:21)
[2022-05-14 10:16] LABS: EPI CELLS 22 /uL (0-25.1); HYALINE CASTS 0 /uL (0-3.1); URINE APPEARANCE CLEAR; URINE BACTERIA 721 /uL (0-1359); URINE BILIRUBIN NEGATIVE (NEGATIVE); URINE COLOR YELLOW; URINE GLUCOSE (UA) NEGATIVE (NEGATIVE); URINE KETONE NEGATIVE (NEGATIVE); URINE LEUK ESTERASE TRACE (NEGATIVE); URINE NITRITE NEGATIVE (NEGATIVE); URINE PROTEIN NEGATIVE (NEGATIVE); URINE RBC 10 /uL (0-23.9); URINE UROBILINOGEN 0.2 mg/dL (0.2-1.0); URINE WBC 17 /uL (0-25.8)
[2022-05-14] MEDS: PRENATAL VITAMINS W/ FOLIC ACID TABLET (FP) PO SCH (10:49)
[2022-05-14] MEDS: NICOTINE 14 MG/24 HOURS TOPICAL PATCH TD SCH (10:50)
[2022-05-14 14:13] LABS: HEMATOCRIT 34.5 % (32.4-45.2); HEMOGLOBIN 10.7 GM/dL (10.7-15.3); MCH 25.3 pg (25.7-33.7); MCHC 31.1 g/dl (32.0-36.0); MEAN CELL VOLUME 81.3 fl (80-96); MEAN PLT VOLUME 9.7 fl (7.5-11.1); PLATELET COUNT 161 10^3/uL (134-434); RBC 4.25 M/mm3 (3.60-5.2); RDW 17.2 % (11.6-15.6); WHITE BLOOD COUNT 2.5 K/mm3 (4.0-10.0)
[2022-05-14 14:19] LABS: CALCIUM 8.6 mg/dL (8.5-10.1)
[2022-05-14 14:20] LABS: BLOOD UREA NITROGEN 17.8 mg/dL (7-18)
[2022-05-14 14:24] LABS: BILIRUBIN,TOTAL 0.4 mg/dL (0.2-1); TOT PROT 6.9 g/dl (6.4-8.2)
[2022-05-14] MEDS: THIAMINE HCL 100 MG TABLET (FP) PO SCH (21:21)
[2022-05-14] MEDS: MELATONIN 5 MG TABLETS PO SCH (21:21)
[2022-05-15] MEDS: hydrOXYzine PAMOATE 25 MG CAPSULE (FP) PO SCH ×5 (06:31→21:43)
[2022-05-15] MEDS: PRENATAL VITAMINS W/ FOLIC ACID TABLET (FP) PO SCH (10:11)
[2022-05-15] MEDS: NICOTINE 14 MG/24 HOURS TOPICAL PATCH TD SCH (10:12)
[2022-05-15] MEDS: BICTEGRAV/EMTRICIT/TENOFOV (BIKTARVY) 50-200-25 MG TABLET PO SCH (17:43)
[2022-05-15] MEDS: SULFAMETHOXAZOLE/TMP 200MG-40MG/5ML PO SCH (18:16)
[2022-05-15] MEDS: THIAMINE HCL 100 MG TABLET (FP) PO SCH (21:43)
[2022-05-15] MEDS: MELATONIN 5 MG TABLETS PO SCH (21:43)
[2022-05-16] MEDS: hydrOXYzine PAMOATE 25 MG CAPSULE (FP) PO SCH ×5 (06:55→21:56)
[2022-05-16] MEDS: BICTEGRAV/EMTRICIT/TENOFOV (BIKTARVY) 50-200-25 MG TABLET PO SCH (10:21)
[2022-05-16] MEDS: PRENATAL VITAMINS W/ FOLIC ACID TABLET (FP) PO SCH (10:21)
[2022-05-16] MEDS: NICOTINE 14 MG/24 HOURS TOPICAL PATCH TD SCH (10:21)
[2022-05-16] MEDS: SULFAMETHOXAZOLE/TMP 200MG-40MG/5ML PO SCH (10:23)
[2022-05-16] MEDS: MELATONIN 5 MG TABLETS PO SCH (21:56)
[2022-05-16] MEDS: THIAMINE HCL 100 MG TABLET (FP) PO SCH (21:56)
[2022-05-17] MEDS: hydrOXYzine PAMOATE 25 MG CAPSULE (FP) PO SCH ×5 (06:53→21:31)
[2022-05-17] MEDS: BICTEGRAV/EMTRICIT/TENOFOV (BIKTARVY) 50-200-25 MG TABLET PO SCH (10:18)
[2022-05-17] MEDS: PRENATAL VITAMINS W/ FOLIC ACID TABLET (FP) PO SCH (10:18)
[2022-05-17] MEDS: NICOTINE 14 MG/24 HOURS TOPICAL PATCH TD SCH (10:18)
[2022-05-17] MEDS: SULFAMETHOXAZOLE/TMP 200MG-40MG/5ML PO SCH (16:00)
[2022-05-17] MEDS: MELATONIN 5 MG TABLETS PO SCH (21:31)
[2022-05-17] MEDS: THIAMINE HCL 100 MG TABLET (FP) PO SCH (21:31)
[2022-05-18] MEDS: hydrOXYzine PAMOATE 25 MG CAPSULE (FP) PO SCH ×2 (07:14→10:14)
[2022-05-18] MEDS: NICOTINE 14 MG/24 HOURS TOPICAL PATCH TD SCH (10:13)
[2022-05-18] MEDS: PRENATAL VITAMINS W/ FOLIC ACID TABLET (FP) PO SCH (10:13)
[2022-05-18] MEDS: BICTEGRAV/EMTRICIT/TENOFOV (BIKTARVY) 50-200-25 MG TABLET PO SCH (10:14)
[2022-05-18] MEDS: SULFAMETHOXAZOLE/TMP 200MG-40MG/5ML PO SCH (10:14)
[2022-05-18] MEDS: hydrOXYzine PAMOATE 25 MG CAPSULE (FP) PO PRN (21:27)
[2022-05-18] MEDS: MELATONIN 5 MG TABLETS PO SCH (21:27)
[2022-05-18] MEDS: THIAMINE HCL 100 MG TABLET (FP) PO SCH (21:27)
[2022-05-18] MEDS: BACITRACIN 0.9 GM PACKET TP SCH (21:30)
[2022-05-19] MEDS: BACITRACIN 0.9 GM PACKET TP SCH ×2 (10:35→21:15)
[2022-05-19] MEDS: BICTEGRAV/EMTRICIT/TENOFOV (BIKTARVY) 50-200-25 MG TABLET PO SCH (10:35)
[2022-05-19] MEDS: PRENATAL VITAMINS W/ FOLIC ACID TABLET (FP) PO SCH (10:35)
[2022-05-19] MEDS: NICOTINE 14 MG/24 HOURS TOPICAL PATCH TD SCH (10:35)
[2022-05-19] MEDS: SULFAMETHOXAZOLE/TMP 200MG-40MG/5ML PO SCH (10:36)
[2022-05-19] MEDS: MELATONIN 5 MG TABLETS PO SCH (21:13)
[2022-05-19] MEDS: THIAMINE HCL 100 MG TABLET (FP) PO SCH (21:14)
[2022-05-19] MEDS: hydrOXYzine PAMOATE 25 MG CAPSULE (FP) PO PRN (21:14)
[2022-05-20] MEDS: PRENATAL VITAMINS W/ FOLIC ACID TABLET (FP) PO SCH (10:29)
[2022-05-20] MEDS: BICTEGRAV/EMTRICIT/TENOFOV (BIKTARVY) 50-200-25 MG TABLET PO SCH (10:29)
[2022-05-20] MEDS: BACITRACIN 0.9 GM PACKET TP SCH ×2 (10:29→21:36)
[2022-05-20] MEDS: NICOTINE 14 MG/24 HOURS TOPICAL PATCH TD SCH (10:29)
[2022-05-20] MEDS: SULFAMETHOXAZOLE/TMP 200MG-40MG/5ML PO SCH (10:30)
[2022-05-20] MEDS: THIAMINE HCL 100 MG TABLET (FP) PO SCH (21:35)
[2022-05-20] MEDS: hydrOXYzine PAMOATE 25 MG CAPSULE (FP) PO PRN (21:35)
[2022-05-20] MEDS: MELATONIN 5 MG TABLETS PO SCH (21:36)
[2022-05-21 06:26] VITALS: BP 86/61; PULSE 78; TEMP 97.5
[2022-05-21] MEDS: SULFAMETHOXAZOLE/TMP 200MG-40MG/5ML PO SCH (10:55)
[2022-05-21] MEDS: BACITRACIN 0.9 GM PACKET TP SCH (10:55)
[2022-05-21] MEDS: BICTEGRAV/EMTRICIT/TENOFOV (BIKTARVY) 50-200-25 MG TABLET PO SCH (10:55)
[2022-05-21] MEDS: NICOTINE 14 MG/24 HOURS TOPICAL PATCH TD SCH (10:55)
[2022-05-21] MEDS: PRENATAL VITAMINS W/ FOLIC ACID TABLET (FP) PO SCH (10:56)
[2022-05-22] MEDS ORDERED: PALIPERIDONE PALMITATE (INVEGA) 234 MG/1.5 ML SYRINGE IM SCH (10:00)
== END 2022-05-21 11:05 | disposition home or self-care (01) | DRG 772 ==
LOC: YASAS 13:27 → Y5N 19:15
PROVIDERS: ADMIT Allergy & Immunology; ATTEND Psychiatry & Neurology Pain Medicine
PROC: HZ42ZZZ Group Counseling for Substance Abuse Treatment, Cognitive-Behavioral (ICD-10-PCS; principal; 2022-05-13)
DX: F10.20 Alcohol dependence, uncomplicated (principal); F14.20 Cocaine dependence, uncomplicated; F17.210 Nicotine dependence, cigarettes, uncomplicated; F20.0 Paranoid schizophrenia; Z21 Asymptomatic human immunodeficiency virus [HIV] infection status; J45.909 Unspecified asthma, uncomplicated; Z88.0 Allergy status to penicillin
CPT/HCPCS: 36415; 71046-TC-FY; 80053; 81003; 85027; 86593; 86780; 86803; 87522; C9803-CS; U0003; U0005

== ENCOUNTER 2025-06-25 10:17 | Inpatient (IN) | payer OTHER ==
[2025-06-25 10:49] VITALS: BMI 18.0
[2025-06-25] MEDS ORDERED: guaiFENesin 600 MG TABLET.ER (FP) PO PRN (12:19)
[2025-06-25] MEDS ORDERED: BENZOCAINE/MENTHOL (CHLORASEPTIC ) LOZENGE MM PRN (12:19)
[2025-06-25] MEDS ORDERED: LOPERAMIDE HCL 2 MG CAPSULE PO PRN (12:19)
[2025-06-25] MEDS ORDERED: BENZONATATE 200 MG CAPSULE PO PRN (12:19)
[2025-06-25] MEDS ORDERED: MAG HYDROX/AL HYDROX/SIMETH 30 ML UNIT-DOSE CUP PO PRN (12:19)
[2025-06-25] MEDS ORDERED: IBUPROFEN 400 MG TABLET (FP) PO PRN (12:19)
[2025-06-25] MEDS ORDERED: POLYETHYLENE GLYCOL (HEALTHYLAX) 3350 17 GM PACKET PO PRN (12:19)
[2025-06-25] MEDS ORDERED: MAGNESIUM HYDROX 2400MG/30ML ORAL SUSPENSION 30 ML CUP PO PRN (12:19)
[2025-06-25] MEDS ORDERED: NICOTINE POLACRILEX 2 MG LOZENGE BC PRN (12:19)
[2025-06-25] MEDS ORDERED: NALOXONE (NARCAN) HCL 4 MG/0.1 ML SPRAY NS PRN (12:19)
[2025-06-25] MEDS ORDERED: NICOTINE POLACRILEX 2 MG GUM BUC PRN (12:19)
[2025-06-25] MEDS ORDERED: ALBUTEROL SO4 HFA INHALER IH PRN (14:04)
[2025-06-25] MEDS: IBUPROFEN 600 MG TABLET (FP) PO PRN (15:23)
[2025-06-25] MEDS ORDERED: TUBERCULIN PPD 5 TU/0.1ML SYRINGE (IN PATIENT USE ONLY) ID ONE (16:20)
[2025-06-25] MEDS: MELATONIN 5 MG TABLETS PO SCH (22:38)
[2025-06-25] MEDS: THIAMINE 100 MG TABLET PO SCH (22:38)
[2025-06-26] MEDS: BICTEGRAV/EMTRICIT/TENOFOV (BIKTARVY) 50-200-25 MG TABLET PO SCH (07:37)
[2025-06-26] MEDS: PRENATAL VITAMINS W/ FOLIC ACID TABLET (FP) PO SCH (09:13)
[2025-06-26 10:31] LABS: MCHC 30.0 g/dl (32.2-35.5); MEAN CELL VOLUME 81.8 fl (79.4-94.8); MEAN PLT VOLUME 11.5 fl (9.4-12.3); RDW 16.0 % (12.4-16.4)
[2025-06-26 12:07] LABS: ALK PHOS 67 U/L (40-150); CO2 28 mmol/L (21-32); GLUCOSE,RANDOM 83 mg/dL (74-106); TOT PROT 6.8 g/dl (6.4-8.2)
[2025-06-26 12:08] LABS: CREATININE 0.95 mg/dL (0.55-1.3); SGOT/AST 15 U/L (5-34); SGPT/ALT < 6 U/L (0-55)
[2025-06-26 12:09] LABS: SYPHILIS W/ RPR CONF REACTIVE (NONREACTIVE)
[2025-06-26 13:22] LABS: RPR REFLEX REACTIVE 1:1 (NONREACTIVE)
[2025-06-26 18:28] LABS: URINE APPEARANCE CLEAR; URINE BILIRUBIN NEGATIVE (NEGATIVE); URINE COLOR YELLOW; URINE GLUCOSE (UA) NEGATIVE (NEGATIVE); URINE KETONE NEGATIVE (NEGATIVE); URINE LEUK ESTERASE NEGATIVE (NEGATIVE); URINE NITRITE NEGATIVE (NEGATIVE); URINE PROTEIN NEGATIVE (NEGATIVE); URINE UROBILINOGEN 1.0 mg/dL (0.2-1.0)
[2025-06-28] MEDS: ACETAMINOPHEN 325 MG TABLET (FP) PO PRN (09:55)
[2025-06-30 07:03] VITALS: BP 130/73; PULSE 62; RESP 17; TEMP 97.9
== END 2025-07-01 10:10 | disposition home or self-care (01) | DRG 772 ==
LOC: YASAS 10:17 → Y3NR 13:21 → Y5N 06-26 11:23
PROVIDERS: ADMIT Psychiatry & Neurology Pain Medicine; ATTEND Psychiatry & Neurology Pain Medicine
PROC: HZ42ZZZ Group Counseling for Substance Abuse Treatment, Cognitive-Behavioral (ICD-10-PCS; principal; 2025-06-25)
DX: F14.20 Cocaine dependence, uncomplicated (principal); F17.210 Nicotine dependence, cigarettes, uncomplicated; F25.9 Schizoaffective disorder, unspecified; Z21 Asymptomatic human immunodeficiency virus [HIV] infection status; D64.9 Anemia, unspecified; I10 Essential (primary) hypertension; J44.9 Chronic obstructive pulmonary disease, unspecified; M16.11 Unilateral primary osteoarthritis, right hip; R73.03 Prediabetes; R26.89 Other abnormalities of gait and mobility; Z79.899 Other long term (current) drug therapy; Z99.89 Dependence on other enabling machines and devices
CPT/HCPCS: 36415; 80053; 80307; 81003; 82962; 85027; 86593; 86780; 93005; 93010